=== PATIENT | male | born 1965 | race Caucasian/White ===

== ENCOUNTER 2018-01-31 22:32 | Emergency (ER) | payer MEDICAID, OTHER ==
[~2018-01-31] VITALS: Ht 182.9 cm; Wt 83.9 kg
[2018-01-31 22:51] VITALS: BP 150/89
[2018-02-01] MEDS ORDERED: Haloperidol 5mg/ml Inj IM ONE
[2018-02-01 00:07] LABS: HEMATOCRIT 33.6 % (42.0-52.0); HEMOGLOBIN 12.3 G/DL (14.2-18.0); MEAN CORPUSCULAR VOLUME 91 FL (80-99); PLATELET COUNT 166 K/UL (150-450); RED CELL DISTRIBUTION WIDTH 12.4 % (11.6-14.8); WHITE BLOOD COUNT 10.2 K/UL (4.8-10.8)
[2018-02-01 00:24] LABS: ANION GAP 11 mmol/L (5-15); BLOOD UREA NITROGEN 28 mg/dL (7-18); CALCIUM 9.2 MG/DL (8.5-10.1); CARBON DIOXIDE 24 MMOL/L (21-32); CHLORIDE 106 MMOL/L (98-107); CREATININE 1.4 MG/DL (0.55-1.30); POTASSIUM 3.3 MMOL/L (3.5-5.1); SODIUM 141 MMOL/L (136-145)
[2018-02-01 00:28] LABS: ALANINE AMINOTRANSFERASE 20 U/L (12-78); ALBUMIN 3.7 G/DL (3.4-5.0); ALKALINE PHOSPHATASE 94 U/L (46-116); ASPARTATE AMINO TRANSFERASE 22 U/L (15-37); BILIRUBIN,TOTAL 0.5 MG/DL (0.2-1.0)
[2018-02-01 02:16] VITALS: BP 142/88
--- NOTE | 2018-02-01 05:33 | Emergency Room Report ---
History of Present Illness General Chief Complaint: Behavioral Complaint Source: EMS (Matthew Kaur MD) Present Illness HPI 52-year-old male presents ED for evaluation. Patient brought in by EMS and [employer]. Found running on the streets. Patient is hearing voices stating that people are coming to get him. Patient placed on 5150 hold. Patient denies any suicidal or homicidal ideation. Denies chest pain or shortness of breath. Denies any drug use. No other aggravating relieving factors. Denies any other associated symptoms (Matthew Kaur MD) Allergies: Coded Allergies: No Known Allergies (Unverified , 01/31/18) Patient History Past Medical History: psych hx Past Surgical History: none Pertinent Family History: none Social History: Reports: drug use; Denies: smoking, alcohol use Immunizations: UTD Reviewed Nursing Documentation: PMH: Agreed; PSxH: Agreed (Matthew Kaur MD) Nursing Documentation-PMH History Of Psychiatric Problem: Yes - SCHIZO (Matthew Kaur MD) Review of Systems All Other Systems: negative except mentioned in HPI (Matthew Kaur MD) Physical Exam Vital Signs Date Time Temp Pulse Resp B/P (MAP) Pulse Ox O2 Delivery O2 Flow Rate FiO2 01/31/18 22:35 98.0 101 18 142/89 100 Room Air 98.1 Sp02 EP Interpretation: reviewed, normal General Appearance: no apparent distress, alert, GCS 15, non-toxic Head: normocephalic, atraumatic Eyes: bilateral eye normal inspection, bilateral eye PERRL ENT: hearing grossly normal, normal pharynx, no angioedema, normal voice Neck: full range of motion, supple/symm/no masses Respiratory: chest non-tender, lungs clear, normal breath sounds, speaking full sentences Cardiovascular #1: regular rate, rhythm, no edema Cardiovascular #2: 2+ carotid (R), 2+ carotid (L), 2+ radial (R), 2+ radial (L) , 2+ dorsalis pedis (R), 2+ dorsalis pedis (L) Gastrointestinal: normal bowel sounds, non tender, soft, non-distended, no guarding, no rebound Rectal: deferred Genitourinary: normal inspection, no CVA tenderness Musculoskeletal: back normal, gait/station normal, normal range of motion, non- tender Neurologic: alert, oriented x3, responsive, motor strength/tone normal, sensory intact, speech normal Psychiatric: no suicidal/homicidal ideation, depressed affect, anxious Reflexes: 3+ bicep (R), 3+ bicep (L), 3+ tricep (R), 3+ tricep (L), 3+ knee (R) , 3+ knee (L) Skin: normal color, no rash, warm/dry, well hydrated Lymphatic: no adenopathy (Matthew Kaur MD) Medical Decision Making Diagnostic Impression: Primary Impression: Hearing voices Additional Impression: Substance abuse Labs Test 01/31/18 23:42 02/01/18 00:17 White Blood Count 10.2 K/UL (4.8-10.8) Red Blood Count 3.70 M/UL (4.70-6.10) Hemoglobin 12.3 G/DL (14.2-18.0) Hematocrit 33.6 % (42.0-52.0) Mean Corpuscular Volume 91 FL (80-99) Mean Corpuscular Hemoglobin 33.2 PG (27.0-31.0) Mean Corpuscular Hemoglobin Concent 36.6 G/DL (32.0-36.0) Red Cell Distribution Width 12.4 % (11.6-14.8) Platelet Count 166 K/UL (150-450) Mean Platelet Volume 7.6 FL (6.5-10.1) Neutrophils (%) (Auto) % (45.0-75.0) Lymphocytes (%) (Auto) % (20.0-45.0) Monocytes (%) (Auto) % (1.0-10.0) Eosinophils (%) (Auto) % (0.0-3.0) Basophils (%) (Auto) % (0.0-2.0) Sodium Level 141 MMOL/L (136-145) Potassium Level 3.3 MMOL/L (3.5-5.1) Chloride Level 106 MMOL/L (98-107) Carbon Dioxide Level 24 MMOL/L (21-32) Anion Gap 11 mmol/L (5-15) Blood Urea Nitrogen 28 mg/dL (7-18) Creatinine 1.4 MG/DL (0.55-1.30) Estimat Glomerular Filtration Rate 53.2 mL/min (>60) Glucose Level 116 MG/DL (74-106) Calcium Level 9.2 MG/DL (8.5-10.1) Total Bilirubin 0.5 MG/DL (0.2-1.0) Aspartate Amino Transf (AST/SGOT) 22 U/L (15-37) Alanine Aminotransferase (ALT/SGPT) 20 U/L (12-78) Alkaline Phosphatase 94 U/L (46-116) Total Protein 7.3 G/DL (6.4-8.2) Albumin 3.7 G/DL (3.4-5.0) Globulin 3.6 g/dL Albumin/Globulin Ratio 1.0 (1.0-2.7) Salicylates Level 1.7 ug/mL (2.8-20) Acetaminophen Level < 2 MCG/ML (10-30) Serum Alcohol < 3 mg/dL Urine Opiates Screen Negative (NEGATIVE) Urine Barbiturates Screen Negative (NEGATIVE) Phencyclidine (PCP) Screen Negative (NEGATIVE) Urine Amphetamines Screen Positive (NEGATIVE) Urine Benzodiazepines Screen Negative (NEGATIVE) Urine Cocaine Screen Negative (NEGATIVE) Urine Marijuana (THC) Screen Negative (NEGATIVE) (Matthew Kaur MD) ER Course Patient was endorsed to me by Dr. Kaur. The patient was noted to be on a 5150 hold. The patient had been noted be positive for methamphetamine. X-ray imaging of the left humerus and left wrist read by radiology showed no evidence of acute fracture with normal bony alignment. The patient appears calm at this time.The patient was medically cleared for psychiatric placement . Labs Test 01/31/18 23:42 02/01/18 00:17 White Blood Count 10.2 K/UL (4.8-10.8) Red Blood Count 3.70 M/UL (4.70-6.10) Hemoglobin 12.3 G/DL (14.2-18.0) Hematocrit 33.6 % (42.0-52.0) Mean Corpuscular Volume 91 FL (80-99) Mean Corpuscular Hemoglobin 33.2 PG (27.0-31.0) Mean Corpuscular Hemoglobin Concent 36.6 G/DL (32.0-36.0) Red Cell Distribution Width 12.4 % (11.6-14.8) Platelet Count 166 K/UL (150-450) Mean Platelet Volume 7.6 FL (6.5-10.1) Neutrophils (%) (Auto) % (45.0-75.0) Lymphocytes (%) (Auto) % (20.0-45.0) Monocytes (%) (Auto) % (1.0-10.0) Eosinophils (%) (Auto) % (0.0-3.0) Basophils (%) (Auto) % (0.0-2.0) Sodium Level 141 MMOL/L (136-145) Potassium Level 3.3 MMOL/L (3.5-5.1) Chloride Level 106 MMOL/L (98-107) Carbon Dioxide Level 24 MMOL/L (21-32) Anion Gap 11 mmol/L (5-15) Blood Urea Nitrogen 28 mg/dL (7-18) Creatinine 1.4 MG/DL (0.55-1.30) Estimat Glomerular Filtration Rate 53.2 mL/min (>60) Glucose Level 116 MG/DL (74-106) Calcium Level 9.2 MG/DL (8.5-10.1) Total Bilirubin 0.5 MG/DL (0.2-1.0) Aspartate Amino Transf (AST/SGOT) 22 U/L (15-37) Alanine Aminotransferase (ALT/SGPT) 20 U/L (12-78) Alkaline Phosphatase 94 U/L (46-116) Total Protein 7.3 G/DL (6.4-8.2) Albumin 3.7 G/DL (3.4-5.0) Globulin 3.6 g/dL Albumin/Globulin Ratio 1.0 (1.0-2.7) Salicylates Level 1.7 ug/mL (2.8-20) Acetaminophen Level < 2 MCG/ML (10-30) Serum Alcohol < 3 mg/dL Urine Opiates Screen Negative (NEGATIVE) Urine Barbiturates Screen Negative (NEGATIVE) Phencyclidine (PCP) Screen Negative (NEGATIVE) Urine Amphetamines Screen Positive (NEGATIVE) Urine Benzodiazepines Screen Negative (NEGATIVE) Urine Cocaine Screen Negative (NEGATIVE) Urine Marijuana (THC) Screen Negative (NEGATIVE) (Kyle Ceron) Last Vital Signs Date Time Temp Pulse Resp B/P (MAP) Pulse Ox O2 Delivery O2 Flow Rate FiO2 01/31/18 22:51 98.1 92 18 150/89 100 Room Air 98.1 (Matthew Kaur MD) Status: unchanged (Kyle Ceron) Disposition: XFER TO PSYCH HOSP/UNIT Condition: Serious Referrals: NOT CHOSEN IPA/,REFERRING (PCP) Matthew Kaur MD February 01, 2018 05:32 Kyle Ceron February 01, 2018 08:33
[2018-02-01 07:43] VITALS: BP 121/77
[2018-02-01] MEDS ORDERED: Bacitracin Oint UD TOPIC ONE (07:45)
[2018-02-01] MEDS ORDERED: Acetaminophen 500mg (ES) tab ORAL ONE (08:00)
--- NOTE | 2018-02-01 11:10 | Diagnostic Imaging Report ---
Indication: Pain Technique: XRAY Humerus 2v L Comparison: None Findings: There is no evidence of acute humeral fracture. Shoulder and elbow joints are maintained. There is questionable widening of the left acromioclavicular joint, over 1 cm on both views. There is no abnormal elevation of the clavicle related to the acromion. IMPRESSION: No evidence of acute fracture or dislocation. Questionable mild widening of the left acromioclavicular joint which may in part be projectional however type I AC joint injury/sprain not entirely excluded. Correlate clinically. Dedicated clavicle radiographs can be obtained as clinically indicated.
[2018-02-01 12:02] VITALS: BP 130/86
--- NOTE | 2018-02-01 12:16 | Diagnostic Imaging Report ---
Indication: Pain Technique: XRAY Wrist Complete L Comparison: None Findings: There is no acute fracture or dislocation. There is some cystic change in the triquetrum which may be sequela of remote trauma. There is a remote fracture deformity of the fifth metatarsal shaft. No focal soft tissue abnormality is appreciated. No radiopaque foreign body seen. IMPRESSION: No evidence of acute fracture or dislocation. Additional findings as above.
[2018-02-01 13:00] VITALS: BP 118/73
== END 2018-02-01 13:15 ==
LOC: EDBD 22:32 → EMR 22:57
DX: R44.0 Auditory hallucinations (principal); F15.10 Other stimulant abuse, uncomplicated; M25.532 Pain in left wrist; F20.9 Schizophrenia, unspecified
CPT/HCPCS: 36415; 80053; 80307; 80329; 85025; 99285; J8499

== ENCOUNTER 2019-07-18 10:32 | Emergency (ER) | payer MEDICAID ==
[~2019-07-18] VITALS: Ht 185.4 cm; Wt 81.6 kg
[2019-07-18 10:42] VITALS: BP 118/83
--- NOTE | 2019-07-18 10:52 | NUR ---
ED Nurse Note: Pt walked in due to redness and watery left eye for a couple of days. Denies fever or blurring of vision. AAO x4 and ambulatory.
[2019-07-18] MEDS ORDERED: Fluorescein Strips BOTH EYES ONE (11:00)
--- NOTE | 2019-07-18 11:19 | Emergency Room Report ---
History of Present Illness General Chief Complaint: Eye Problems Source: Patient Present Illness HPI 54yo M complains of 2-day history of left eye redness and irritation, feels like he is having mucousy discharge as well. He reports mild blurred vision and watery discharge as well, does not use contact lenses denies fevers, injuries, foreign body sensation, denies any other complaints. Allergies: Coded Allergies: No Known Allergies (Unverified , 01/31/18) Patient History Past Medical History: see triage record Reviewed Nursing Documentation: PMH: Agreed; PSxH: Agreed Nursing Documentation-PMH Past Medical History: No Stated History Review of Systems Constitutional: Denies: fever Eye: Denies: acuity changes Respiratory: Denies: cough, shortness of breath Cardiovascular: Denies: chest pain Gastrointestinal: Denies: nausea, vomiting Skin: Denies: rash Neurological: Denies: headache Physical Exam Vital Signs Date Time Temp Pulse Resp B/P (MAP) Pulse Ox O2 Delivery O2 Flow Rate FiO2 07/18/19 10:42 98.2 74 19 118/83 (95) 97 Room Air General Appearance: well appearing, no apparent distress Head: normocephalic, atraumatic Eyes: left eye Scleral Injection; bilateral eye PERRL, bilateral eye EOMI ENT: hearing grossly normal, normal voice Neck: full range of motion, supple Respiratory: no respiratory distress, speaking full sentences Musculoskeletal: no calf tenderness Neurologic: alert, normal gait Psychiatric: mood/affect normal Skin: no rash Medical Decision Making Diagnostic Impression: Primary Impression: Conjunctivitis ER Course Patient with blepharitis versus conjunctivitis, very benign appearing, will give her erythromycin, follow-up with eye doctor, recommend hand hygiene to prevent spread Last Vital Signs Date Time Temp Pulse Resp B/P (MAP) Pulse Ox O2 Delivery O2 Flow Rate FiO2 07/18/19 10:42 98.2 74 19 118/83 (95) 97 Room Air Disposition: HOME, SELF-CARE Condition: Stable Scripts No Active Prescriptions or Reported Meds JESSICA PACHECO M.D Jul 18, 2019 11:19
--- NOTE | 2019-07-18 11:19 | NUR ---
ED Nurse Note: Neola/juice provided to pt.
[2019-07-18] MEDS ORDERED: ERYTHROMYCIN1 G1 OP (11:20)
[2019-07-18 11:33] VITALS: BP 122/76
--- NOTE | 2019-07-18 11:33 | NUR ---
ER DISCHARGE NOTE: Patient is cleared to be discharged per ERMD, pt is aox4, on room air, with stable vital signs. pt was given dc and prescription instructions,community referral list provided. pt was able to verbalize understanding, pt id band removed. pt is able to ambulate with steady gait. pt took all belongings.
== END 2019-07-18 11:33 | disposition home or self-care (01) ==
LOC: EMR 11:24
DX: H10.9 Unspecified conjunctivitis (principal)
CPT/HCPCS: 99283